=== PATIENT | female | born 1950 | race Caucasian/White ===

== ENCOUNTER 2020-08-12 17:30 | Inpatient (IN) | payer MEDICARE ==
[~2020-08-12] VITALS: Ht 162.6 cm; Wt 64.1 kg
[2020-08-12] MEDS ORDERED: PROVENTIL HFA6.7 GM INH (23:43)
[2020-08-12] MEDS ORDERED: DULERA 200 MCG8.8 GM INH (23:44)
[2020-08-12] MEDS ORDERED: SPIRIVA HANDIH18 MCG INH (23:44)
[2020-08-12] MEDS ORDERED: SENOKOT8.6 MG PO (23:45)
[2020-08-12] MEDS ORDERED: ZANAFLEX2 MG PO (23:46)
[2020-08-12] MEDS ORDERED: OXYCODONE HCL10 MG PO (23:47)
[2020-08-12] MEDS ORDERED: LACTINEX TABLET1 EA PO (23:49)
[2020-08-12] MEDS ORDERED: ADVAIR 250-501 EACH INH (23:49)
[2020-08-12] MEDS ORDERED: ZYRTEC10 M3 PO (23:50)
[2020-08-12] MEDS ORDERED: OXYCONTIN10 MG PO (23:51)
[2020-08-12] MEDS ORDERED: LOSARTAN POTAS100 MG PO (23:52)
[2020-08-12] MEDS ORDERED: MIRALAX17 GM PO (23:52)
[2020-08-12] MEDS ORDERED: NORVASC5 MG PO (23:53)
[2020-08-12] MEDS ORDERED: BOOST PLUS237 ML PO (23:54)
[2020-08-12] MEDS ORDERED: FERROUS SULFAT325 M1 PO (23:55)
[2020-08-12] MEDS ORDERED: PROTONIX 40 MG40 M1 PO (23:57)
[2020-08-12] MEDS ORDERED: SPIRIVA18 MCG INH (23:58)
--- NOTE | 2020-08-12 23:58 | NUR ---
PATIENT ARRIVED VIA EMS FROM [facility]. UPON ARRIVAL SHE WAS SNORING, BREATHING 8 TIMES A MINUTE, LETHARGIC, UNABLE TO ANSWER QUESTIONS AND ONLY RESPONDING TO PAINFUL STIMULI. WE GOT FIRST SET OF VITALS AND I NOTIFIED OF HER VITALS AND CONDITION. HE ORDERED A 1L BOLUS AND TO RECHECK BLOOD PRESSURE AFTERWARDS. I SPOKE TO THE FAMILY MEMBER IN THE ROOM AND SHE TOLD ME SHE WAS COMING HERE FOR DIALYSIS, SHE HAD SOME NEW KIDNEY ISSUES GOING ON AND SHE HAD NOT PEED MUCH SINCE THE THREE BOLUS SHE RECIEVED AT THE OTHER FACILITY. I CALLED MD BACK TO TELL HIM WHAT I FOUND OUT AND TO CLARIFY THAT HE STILL WANTED TO GO AHEAD AND GIVE ANOTHER BOLUS, HE AGREED TO GIVE. THE PATIENT WAS NOT IN OUR COMPUTER SYSTEM, SO I WAS UNABLE TO PULL HER UP AND PUT IN THAT ORDER. HER BLOOD PRESSURE CONTINUED TO TREND DOWN SO I CALLED MD BACK TO LET HIM KNOW ABOUT BP AND BREATHING, HE SAID GO AHEAD WITH THE BOLUS AND GET AN ABG. I WAS AGAIN UNABLE TO PUT THE ABG IN DUE TO HER NOT BEING IN THE SYSTEM. ABDELRAHMAN CHRISTIANSON, IRISH SPOKE TO REGISTRATION TO GET THIS FIXED. I CALLED RESPIRATORY ABOUT THE ABG AND SHE WAS ON HER UP WAY. THE PATIENT CONTINUED TO DECLINE SO WE CALLED AN [employer]CRAFT [employer] MECHANIC. PATIENT WAS HOOKED UP ON THE CRASH CART AND MD ARRIVED TO THE ROOM. NARCAN WAS GIVEN, BLOOD SUGAR WAS 110. AFTER NARCAN, PATIENT STARTED TO COME BACK AROUND. SHE STARTED TALKING AND ANSWERING SOME OF THE MD'S QUESTIONS. PATIENT WAS TRANSFERRED TO 2123 FOR A NARCAN AND LEVOFED DRIP. SHE WAS TRANSFERRED DOWN BY MYSELF, HELADIO CARRASCO, AND AZEB MONTANO AND REPORT WAS GIVEN AT BEDSIDE.
[2020-08-13] MEDS ORDERED: DULERA 200 MCG8.8 GM INH (00:01)
[2020-08-13] MEDS ORDERED: NICORETTE TD (00:04)
[2020-08-13] MEDS ORDERED: OXYCONTIN10 MG PO (00:05)
[2020-08-13] MEDS ORDERED: ZOFRAN 4 MG TAB4 MG PO (00:05)
[2020-08-13] MEDS ORDERED: SENNA8.6 MG PO (00:07)
[2020-08-13] MEDS ORDERED: COMPAZINE 10MG10 MG PO (00:09)
[2020-08-13 02:06] LABS: HEMOGLOBIN 9.4 gm/dl (12.3-15.3); RED BLOOD COUNT 3.35 M/UL (4.00-5.10)
--- NOTE | 2020-08-13 02:35 | NUR ---
DR ARIZA AWARE OF PT CURRENT VS 98/35 MAP 49, HR 78, MENTAL STATUS, AND LEVO REQUIREMENTS. ORDERS FOR HEAD CT AND PHARMACY TO DOSE VANC.
[2020-08-13 18:23] LABS: HEMOGLOBIN 8.8 gm/dl (12.3-15.3); RED BLOOD COUNT 3.2 M/UL (4.00-5.10)
[2020-08-13 18:26] LABS: WHITE BLOOD COUNT 4.5 K/UL (4.5-11.0)
[2020-08-14 03:16] LABS: HEMOGLOBIN 8.5 gm/dl (12.3-15.3); RED BLOOD COUNT 3.12 M/UL (4.00-5.10); WHITE BLOOD COUNT 3.8 K/UL (4.5-11.0)
[2020-08-15 04:35] LABS: HEMOGLOBIN 8.7 gm/dl (12.3-15.3); RED BLOOD COUNT 3.21 M/UL (4.00-5.10); WHITE BLOOD COUNT 3.6 K/UL (4.5-11.0)
[2020-08-16 05:23] LABS: HEMOGLOBIN 8.6 gm/dl (12.3-15.3); RED BLOOD COUNT 3.09 M/UL (4.00-5.10)
[2020-08-16] MEDS ORDERED: LEVOFLOXACIN500 MG PO (13:27)
[2020-08-16] MEDS ORDERED: FLAGYL500 MG PO (13:27)
--- NOTE | 2020-08-16 15:42 | NUR ---
08/16/20 1545 REPORT CALLED TO GERALD AT [facility]
--- NOTE | 2020-08-16 17:00 | NUR ---
08/16/20 0733 GENESIS MYERS RN CALLED [facility] IN TO HER PHARMACY. PATIENT AND SPOUSE INFORMED
== END 2020-08-17 13:50 | disposition home health service (06) | DRG 871 ==
LOC: M/S 22:46 → CCU 22:46 → M/S 08-15 12:46
PROVIDERS: Internal Medicine; Internal Medicine Nephrology; ADMIT Internal Medicine
DX: A41.9 Sepsis, unspecified organism (principal); R65.21 Severe sepsis with septic shock; G92 Toxic encephalopathy; N17.0 Acute kidney failure with tubular necrosis; N30.00 Acute cystitis without hematuria; E87.2 Acidosis; E87.3 Alkalosis; E72.20 Disorder of urea cycle metabolism, unspecified; F11.20 Opioid dependence, uncomplicated; C23 Malignant neoplasm of gallbladder; C78.7 Secondary malignant neoplasm of liver and intrahepatic bile duct; N18.9 Chronic kidney disease, unspecified; I12.9 Hypertensive chronic kidney disease with stage 1 through stage 4 chronic kidney disease, or unspecified chronic kidney disease; K52.89 Other specified noninfective gastroenteritis and colitis; D72.819 Decreased white blood cell count, unspecified; D64.9 Anemia, unspecified; J44.9 Chronic obstructive pulmonary disease, unspecified; E86.0 Dehydration; E87.6 Hypokalemia; Z72.0 Tobacco use; Z85.89 Personal history of malignant neoplasm of other organs and systems; Y92.89 Other specified places as the place of occurrence of the external cause; Z86.73 Personal history of transient ischemic attack (TIA), and cerebral infarction without residual deficits; Z82.49 Family history of ischemic heart disease and other diseases of the circulatory system; Z90.710 Acquired absence of both cervix and uterus; Z90.49 Acquired absence of other specified parts of digestive tract; Z91.041 Radiographic dye allergy status; Z80.0 Family history of malignant neoplasm of digestive organs
CPT/HCPCS: 36415; 36600; 70450; 71045; 80048; 80053; 80202; 81001; 82140; 82550; 82553; 82570; 82803; 82962; 83605; 83735; 84132; 84300; 84484; 85025; 87040; 89050; 93005; 94640; 94664; 94760; J1644; J2310; J2543; J3370; J3480; J7030; J7070